=== PATIENT | male | born 1945 | race Caucasian/White ===

== ENCOUNTER 2017-09-15 10:16 | Emergency (ER) | payer OTHER ==
[~2017-09-15] VITALS: Ht 175.3 cm; Wt 71.2 kg
[~2017-09-15 10:16] MED LIST: AMOXICILLIN250 MG PO; CALTRATE 600 W1 EACH PO; IBUPROFEN400 MG PO; LISINOPRIL10 MG PO; PRINIVIL10 MG PO; PROAIR HFA INH8.5 GM
[2017-09-15] MEDS ORDERED: HYDROCODONE/APAP 7.5MG-325MG 1 EA TAB PO PRN (10:30)
--- NOTE | 2017-09-15 11:16 | Diagnostic Imaging Report ---
EXAM: KNEE LEFT THREE VIEWS DATE: 09/15/2017 10:27 AM INDICATION: Fall/pain COMPARISON: None FINDINGS: Advanced degenerative changes are present, predominantly in the lateral compartment with complete joint space loss. Small joint effusion present. No distinct fracture or dislocation identified. IMPRESSION: Advanced degenerative changes as above. Signed by: Dr. Dawit Chacon MD on 09/15/2017 11:13 AM
[2017-09-15 12:54] VITALS: BP 172/95
== END 2017-09-15 12:23 | disposition home or self-care (01) ==
LOC: ER 10:18
DX: M25.562 Pain in left knee (principal); R26.2 Difficulty in walking, not elsewhere classified; I10 Essential (primary) hypertension; Z85.46 Personal history of malignant neoplasm of prostate
CPT/HCPCS: 99283

== ENCOUNTER 2019-02-22 13:08 | Emergency (ER) | payer OTHER ==
[~2019-02-22] VITALS: Ht 175.3 cm; Wt 71.2 kg
--- OUTSIDE RECORDS SUMMARY | 2019-02-22 13:11 | XMS REPORT | Summary of Care ---
Author Author [facility] Outpatient Imaging [facility] Address Unknown Phone Unavailable Encounter HQ Encntr_aliwarner(FIN) [id number] Date(s): 11/27/18 - 11/27/18 [facility] Outpatient Imaging [facility] [address] [facility], [address] [place] [phone] Discharge Disposition: Home or Self Care Attending Physician: Dada Rivers MD Referring Physician: Dada Rivers MD Vital Signs No data available for this section Problem List No data available for this section Allergies, Adverse Reactions, Alerts No data available for this section Medications No data available for this section Results No data available for this section Immunizations No data available for this section Procedures No data available for this section Social History No data available for this section Assessment and Plan No data available for this section
--- OUTSIDE RECORDS SUMMARY | 2019-02-22 13:11 | XMS REPORT | Continuity of Care Document ---
Author Author [employer] Address Unknown Phone Unavailable Care Team Providers Care Dental Coordinator Name Role Phone Mantex Unavailable Unavailable Problems Problem Status Onset Date Classification Date Reported Comments Source Shortness of breath 08/15/2017 11/15/2017 [facility] R05 - COUGH Active 01/05/2016 [facility] Medications Medication Details Route Status Patient Instructions Ordering Provider Order Date Source Lisinopril 10 Mg Tablet, 10 Mg Oral Daily Active 02/09/2015 [facility] Albuterol Sulfate (Proair Hfa Inhaler*) 8.5 Gm Inh as needed for Shortness Of Breath Active [facility] Amoxicillin 250 Mg Capsule Three Times A Day Active [facility] Calcium Carbonate/Vitamin D3 (Caltrate 600 W-D Tablet) 1 Each Tablet Daily Active [facility] Ibuprofen 400 Mg Tablet Every 4 Hours Active [facility] Lisinopril (Prinivil) 10 Mg Tablet Twice A Day Active [facility] Allergies, Adverse Reactions, Alerts Substance Category Reaction Severity Reaction type Status Date Reported Comments Source Morphine DIFF URINATING Mild Allergy to Substance Active 06/01/2010 [facility] Celecoxib "JUMPY" Mild Allergy to Substance Active 06/01/2010 [facility] Immunizations No Data Provided for This Section Results No Data Provided for This Section Pathology Reports No Data Provided for This Section Diagnostic Reports Report Value Date Source Abdomen complete US EXAM: US ABDOMEN COMPLETE DATE: 11/27/2018 10:24 CDT INDICATION: - R74.8 Abnormal levels of other serum enzymes COMPARISON: None. TECHNIQUE: Multiplanar grayscale and color Doppler ultrasound images of the abdomen. FINDINGS: Liver: Craniocaudal length: 14.4 cm. Normal. Echogenicity: Mildly increased. Mass (size and location): None. Portal vein: Normal. Bile ducts: Common bile duct diameter: 5 mm. Intrahepatic ducts: Normal. Gallbladder: Absent. Pancreas: Head and uncinate process: Normal. Body and tail: Not seen. Spleen: Craniocaudal length: 9 cm. Normal. Mass or focal lesion (size and location): None. Right kidney: Hydronephrosis: None. Size: 9.9 x 4.6 cm. Normal. Echogenicity: Normal. Mass/Stone/Cyst (size and location): Upper pole partially exophytic simple cyst measuring 2 x 2.5 x 2.5 cm. Left kidney: Hydronephrosis: None. Size: 11.4 x 4.9 cm. Normal. Echogenicity: Normal. Mass/Stone/Cyst (size and location): 1.7 x 1.6 x 1.5 cm partially exophytic interpolar lesion echogenic lesion. 3.6 x 3.6 x 4.2 cm simple exophytic cyst at the lower pole. Abdominal aorta and IVC: Visualized portions are normal. Ascites: None. IMPRESSION: Mild fatty change liver. Status cholecystectomy. 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 Recommendations: Multiphasic renal protocol CT or MRI for further evaluation. 11/27/2018 [facility] Chest 2 views DX Exam: Chest x-ray, 2 views Reason for Exam: - R06.02 Shortness of breath Comparison Exam: X-ray 09/21/2015 Discussion: Cardiac silhouette is within normal limits for size. No pulmonary edema nor pleural effusions. No focal lung consolidations appreciated. No appreciable evidence seen for pneumothorax. 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 Impression: 1. No acute cardiopulmonary abnormalities. 08/08/2017 [facility] Chest 2 views DX EXAM: PA AND LATERAL CHEST X RAY DATE:- 01/05/2016 1:51 PM CDT . CLINICAL INDICATION: Acute bronchitis. TECHNIQUE: PA and lateral views of chest COMPARISON: Unavailable FINDINGS: The lungs are hyperinflated with slight flattening of the hemidiaphragms. There is mild diffuse interstitial prominence with peribronchial thickening. Heart size and mediastinal contours are normal. There is no acute bony abnormality. There is advanced bilateral shoulder degenerative change IMPRESSION: Hyperinflated lungs with bronchial thickening suggesting bronchitis of indeterminate chronicity. 01/05/2016 [facility] Consultation Notes No Data Provided for This Section Discharge Summaries No Data Provided for This Section History and Physicals No Data Provided for This Section Vital Signs No Data Provided for This Section Encounters Location Location Details Encounter Type Encounter Number Reason For Visit Attending Provider ADM Date DC Date Status Source [facility] Outpatient [facility] [place] [facility] [id number] Louie Nguyen 03/25/2014 03/26/2014 [facility] Outpatient [facility] [place] [facility] [id number] Louie Nguyen 01/05/2016 01/06/2016 [facility] Outpatient [facility] [place] [facility] [id number] Louie Nguyen 08/08/2017 08/09/2017 [facility] Departed Emergency Room [id number] JULIAN VELASQUEZ MD 09/15/2017 09/15/2017 [facility] Outpatient Imaging - [place] [facility] [id number] Dada Rivers 11/27/2018 11/28/2018 [facility] Procedures No Data Provided for This Section Assessment and Plan No Data Provided for This Section Plan of Care Plan of Care Date Source Discharge Date 09/15/17 12:23pm Disposition HOME, SELF-CARE Condition at Discharge Stable Instructions/Education Provided Joint Pain Forms Provided Work/School Excuse Prescriptions See Medication Section Referrals LOUIE NGUYEN MD Address: [address] [place] [address] SONALI ELAM MD Address: [address] [place] [address] Additional Instructions/Education 1. knee immobilizer / walker 2. return to ed as needed 3. follow up with orthopedic doctor in 1-2 [place] 09/15/2017 [facility] Social History Social History Date Source No data available for this section 11/28/2018 [facility] Social History Problem Response Recorded Date/Time Onset Date Status Hx Psychiatric Problems No 07/29/2013 2:30am Not Applicable Not Applicable Hx Eating Disorder No 07/29/2013 2:30am Not Applicable Not Applicable Hx Substance Use Disorder No 07/29/2013 2:30am Not Applicable Not Applicable Hx Depression No 07/29/2013 2:30am Not Applicable Not Applicable Hx Substance Use Treatment No 07/29/2013 2:30am Not Applicable Not Applicable Hx Physical Abuse No 07/29/2013 2:30am Not Applicable Not Applicable 09/15/2017 [facility] No data available for this section 08/09/2017 [facility] Family History No Data Provided for This Section Advance Directives Order Name Results Value Date Source Advance Directives Advance Directives Directive Response Recorded Date/Time Does the patient have an advance directive? No 09/15/17 12:23pm If yes, is advance directive on file with [facility]? No 04/02/08 2:22pm If not on file with [facility] will patient provide a copy? No 07/21/10 11:37am Do you have a Directive to Physician? No 09/15/17 12:23pm Do you have a Medical Power of Sprinkling Truck Driver? No 09/15/17 12:23pm Do you have an out of hospital Do Not Resuscitate Order? No 09/15/17 12:23pm Do you have any special needs we should be aware of? No 09/15/17 12:23pm Do you have a support person here with you today? No 09/15/17 12:23pm Did patient receive Notice of Privacy Practices? Yes 09/15/17 12:23pm Did patient receive patient rights and responsibilities? Yes 09/15/17 12:23pm 09/15/2017 [facility] Functional Status No Data Provided for This Section
--- OUTSIDE RECORDS SUMMARY | 2019-02-22 13:11 | XMS REPORT | Summary of Care ---
Author Organization Unknown Address Unknown Phone Unavailable Encounter HQ Antonellar_richa(KOLE) [id number] Date(s): 03/25/14 - 03/25/14 [facility] Outpatient Imaging - [address] [address] [place] Discharge Disposition: Home Physician Attending: Louie Nguyen MD Reason for Visit 842.09 - SPRAIN OF WRIST Problem List No data available for this section Allergies, Adverse Reactions, Alerts No data available for this section Medications No data available for this section Medications Administered During Your Visit No data available for this section Immunizations No data available for this section
--- OUTSIDE RECORDS SUMMARY | 2019-02-22 13:11 | XMS REPORT | Summary of Care ---
Author Author [facility] Outpatient Imaging - [place] Organization [facility] [place] Address Unknown Phone Unavailable Encounter HQ Encntr_alias(FIN) [id number] Date(s): 08/08/17 - 08/08/17 [facility] Outpatient [facility] [place] [address] [place], [place] [address] [phone] Encounter Diagnosis Shortness of breath (Final) - 08/14/17 Discharge Disposition: Home or Self Care Attending Physician: Louie Nguyen MD Vital Signs No data available for [...]
--- OUTSIDE RECORDS SUMMARY | 2019-02-22 13:11 | XMS REPORT ---
Author Author [facility] Address Unknown Phone Unavailable Care Team Providers Care School Fundraising Director Name Role Phone OMARIPATSY Anamaria JULIAN Unavailable Unavailable Problems This patient has no known problems. Allergies, Adverse Reactions, Alerts This patient has no known allergies or adverse reactions. Medications This patient has no known medications. Results Test Description Test Time Test Comments Text Results Atomic Results Result Comments KNEE LEFT THREE VIEWS [place] [address] Patient Name: DAVID CABRERA MR #: [id number] : 1945 Age/Sex: 72/M Req #: [id number] Adm Physician: Ordered by: JAQUELIN BARRETO RUG INSPECTOR HELPER Report #: [id number] Location: ER Room/Bed: Procedure: [id number] DX/KNEE LEFT THREE VIEWS Exam Date: 09/15/17 Exam Time: 1045 REPORT STATUS: Signed EXAM: KNEE LEFT THREE VIEWS DATE: 09/15/2017 10:27 AM INDICATION: Fall/pain COMPARISON: None FINDINGS: Advanced degenerative changes are present, predominantly in the lateral compartment with complete joint space loss. Small joint effusion present. No distinct fracture or dislocation identified. IMPRESSION: Advanced degenerative changes as above. Signed by: Dr. Les Mora MD on 09/15/2017 11:13 AM Dictated By: LES MORA MD [id number] Transcribed By: PINEDA on 09/15/171112 COPY TO: JAQUELIN BARRETO NP
--- OUTSIDE RECORDS SUMMARY | 2019-02-22 13:11 | XMS REPORT | Summary of Care ---
Author Author [facility] Outpatient Imaging - [place] Organization [facility] Outpatient Imaging - [place] Address Unknown Phone Unavailable Encounter HQ Encntr_alias(FIN) [id number] Date(s): 01/05/16 - 01/05/16 [facility] Outpatient Imaging - [place] [address] [place] [phone] Discharge Disposition: Home or Self Care Attending [...]
--- NOTE | 2019-02-22 15:07 | Diagnostic Imaging Report ---
Exam: Left knee 3 views History: Knee pain Comparison: 09/15/2017 Findings: Advanced degenerative arthrosis, predominantly within the lateral compartment with complete joint space loss. Worsened subchondral sclerosis and cystic change relative to 09/15/2017. Small suprapatellar joint effusion. No displaced fracture or dislocation. Intra-articular calcific fragments are unchanged. Impression: Advanced lateral compartment predominant tricompartmental degenerative arthrosis. Signed by: Dr. Celestine Valenzuela M.D. on 02/22/2019 3:04 PM
[2019-02-22] MEDS ORDERED: FLOMAX0.4 MG PO (15:29)
[2019-02-22] MEDS ORDERED: MUPIROCIN22 GM TOP (15:29)
[2019-02-22] MEDS ORDERED: HYDRALAZINE HCL25 MG PO (15:29)
[2019-02-22] MEDS ORDERED: GABAPENTIN300 MG PO (15:29)
[2019-02-22] MEDS ORDERED: MEDROXYPROGESTER5 GM PO (15:29)
[2019-02-22] MEDS ORDERED: FUROSEMIDE40 MG PO (15:29)
[2019-02-22] MEDS ORDERED: XARELTO10 MG PO (15:29)
[2019-02-22] MEDS ORDERED: CARVEDILOL3.125 MG PO (15:29)
[2019-02-22] MEDS ORDERED: ISOSORBIDE DINI20 MG PO (15:29)
[2019-02-22] MEDS ORDERED: RENAGEL800 MG PO (15:29)
== END 2019-02-22 15:28 | disposition home or self-care (01) ==
LOC: ER 13:08
DX: M17.12 Unilateral primary osteoarthritis, left knee (principal); I10 Essential (primary) hypertension; Z85.46 Personal history of malignant neoplasm of prostate
CPT/HCPCS: 99283

== ENCOUNTER 2019-03-30 05:56 | Observation (INO) | payer OTHER ==
[2019-03-27 10:21] LABS: BASOPHILS % 0.3 % (0.0-1.0); EOSINOPHILS # (AUTO) 0.3 (0.0-0.4); EOSINOPHILS % 4.7 % (0.0-6.0); HEMATOCRIT 40.7 % (38.2-49.6); HEMOGLOBIN 13.3 g/dL (14.0-18.0); LYMPHOCYTES # (AUTO) 1.7 (1.0-3.2); LYMPHOCYTES % 26.5 % (18.0-39.1); MEAN CORPUSCULAR HEMOGLOBIN 29.6 pg (28-32); MEAN CORPUSCULAR HGB CONC 32.7 g/dL (31-35); MEAN CORPUSCULAR VOLUME 90.4 fL (81-99); MONOCYTES # (AUTO) 0.6 (0.2-0.8); MONOCYTES % 8.9 % (4.4-11.3); NEUTROPHILS # (AUTO) 3.9 (2.1-6.9); PLATELET COUNT 249 x10e3/uL (140-360); RED CELL DISTRIBUTION WIDTH 12.7 % (11.7-14.4)
--- NOTE | 2019-03-27 10:51 | Diagnostic Imaging Report ---
EXAMINATION: CHEST 2 VIEWS INDICATION: Pre-operative COMPARISON: None FINDINGS: LINES/TUBES:None LUNGS:The lungs are well-inflated. No focal consolidation or pulmonary edema. PLEURA:No pleural effusion or pneumothorax. MEDIASTINUM:The cardiomediastinal silhouette appears normal in size and shape. BONES/SOFT TISSUES:No acute osseous injury. Severe degenerative changes of both glenohumeral joints. ABDOMEN:No free air under the diaphragm. Status post cholecystectomy IMPRESSION: No focal pneumonia or pulmonary edema. Severe degenerative changes of both glenohumeral joints. Signed by: Karina Lucero MD on 03/27/2019 10:48 AM
--- NOTE | 2019-03-29 07:05 | NUR ---
SPIRITUAL CARE - Pre-Surgery Assessment: Pt in bed. Pt's friend at bedside. Pt reported supportive attention from family and friends. Intervention: I provided pastoral presence, hospitality, sympathetic listening, and prayer. I acquainted pt with availability of low heel builder while hospitalized. Outcome: Pt expressed appreciation for visit. No need for follow up indicated at this time. LUIS Lorenzolain Spiritual Care Department O: [phone] Pager: [phone] ([phone] + number calling from)
[~2019-03-30] VITALS: Ht 180.3 cm; Wt 70.8 kg
[~2019-03-30 05:56] MED LIST changes: +ALEVE PM CAPLE1 EACH PO; +CARVEDILOL3.125 MG PO; +FLOMAX0.4 MG PO; +FUROSEMIDE40 MG PO; +GABAPENTIN300 MG PO; +HYDRALAZINE HCL25 MG PO; +ISOSORBIDE DINI20 MG PO; +LEVOTHYROXINE112 MCG PO; +MEDROXYPROGESTER5 GM PO; +MUPIROCIN22 GM TOP; +ONE DAILY MULT1 EAC1 PO; +RENAGEL800 MG PO; +STOOL SOFTENER50 MG PO; +XARELTO10 MG PO
[2019-03-30] MEDS ORDERED: TRANEXAMIC ACID 1,000 MG/10 ML ML ONE (06:31)
[2019-03-30] MEDS ORDERED: VANCOMYCIN HCL 1,000 MG ONE (06:31)
[2019-03-30] MEDS ORDERED: BACITRACIN 50,000 UNIT VIAL ONE (06:31)
[2019-03-30] MEDS ORDERED: SODIUM CHLORIDE 0.9% 500ML 500 ML ONE (06:32)
[2019-03-30] MEDS ORDERED: CEFAZOLIN SOD 1 GM/NS 50ML 100 ML IV ONE (06:43)
[2019-03-30] MEDS ORDERED: GABAPENTIN 300 MG CAP ONE (06:43)
[2019-03-30] MEDS ORDERED: DEXAMETHASONE SOD PHOS 10 MG/1 ML VIAL ONE (06:43)
[2019-03-30] MEDS ORDERED: ROPIVACAINE 246.25 MG, EPINEPHRINE HCL 1:1000 1ML 0.5 MG, CLONIDINE HCL 0.08 MG in SODI... INJ ONE (07:30)
--- NOTE | 2019-03-30 10:43 | Diagnostic Imaging Report ---
EXAMINATION: KNEE LEFT 1-2 VIEWS INDICATION: Postoperative COMPARISON: None FINDINGS: Portable AP and lateral images of the left knee demonstrate immediate postoperative findings of left total knee replacement. Alignment is anatomic. No unexpected fracture. Subcutaneous postoperative soft tissue emphysema. Surgical skin marc in place. Small joint effusion. IMPRESSION: Anatomic alignment status post left total knee replacement. Signed by: Karina Lucero MD on 03/30/2019 10:40 AM
[2019-03-30] MEDS ORDERED: DOCUSATE SODIUM 100 MG CAP PO PRN (10:45)
[2019-03-30] MEDS ORDERED: ONDANSETRON HCL INJ 2MG/ML 2ML 2 MG/ML VIAL IV PRN (10:45)
[2019-03-30] MEDS ORDERED: HYDROCODONE/APAP 7.5MG-325MG 1 EA TAB PO PRN (10:45)
[2019-03-30] MEDS ORDERED: KETOROLAC TROMETHAMINE 30 MG/ML VIAL IV PRN (10:45)
[2019-03-30] MEDS ORDERED: DIPHENHYDRAMINE HCL INJ 50 MG/ML VIAL IM/IV PRN (10:45)
[2019-03-30] MEDS ORDERED: ACETAMINOPHEN 650 MG SUPP PR PRN (10:45)
[2019-03-30] MEDS ORDERED: PROMETHAZINE HCL (IM) 25 MG/ML VIAL IM PRN (10:45)
[2019-03-30] MEDS ORDERED: HYDROCODONE/APAP 5MG-325MG TAB PO PRN (10:45)
[2019-03-30] MEDS: ACETAMINOPHEN 1000 MG/100 ML IV SCH ×3 (12:00→23:44)
[2019-03-30] MEDS ORDERED: ROPIVACAINE 0.5% 5 MG/ML 30 ML SDV ONE (13:51)
[2019-03-30 15:23] VITALS: BP 116/69
--- NOTE | 2019-03-30 15:23 | NUR ---
RECEIVED PT TO FLOOR [id number] PT DENIES ANY PAIN AT THIS TIME LEFT KNEE/LEG IS COVERED WITH FADI DRY AND INTACT WITH ICE PACK IN PLACE FOOT PUMPS PRESENT RIGHT LEG COMPRESSION ON IV TO THE RIGHT HAND 20 PATENT AND DRY WILL CONTINUE TO MONITOR PT CLOSELY, SIDE RAILSX3, BED WHEELS LOCKED, CALL LIGHT IS WITHIN EASY REACH, INSTRUCTED TO CALL FOR ASSISTANCE IF NEEDED
[2019-03-30] MEDS: CEFAZOLIN SOD 1 GM/NS 50ML 50 ML IV SCH (16:11)
[2019-03-30] MEDS: ASPIRIN 325 MG TAB PO SCH (16:11)
[2019-03-30] MEDS: SODIUM CHLORIDE 0.9% 1000ML 1,000 ML IV SCH ×2 (16:11→20:44)
[2019-03-30 16:43] VITALS: BP 116/69
[2019-03-30] MEDS ORDERED: PROPOFOL IV EMULSION 10 MG/ML 20 ML VIAL ONE (17:18)
[2019-03-30] MEDS ORDERED: PHENYLEPHRINE HCL 1% 10 MG/ML VIAL ONE (17:18)
[2019-03-30] MEDS ORDERED: ONDANSETRON HCL INJ 2MG/ML 2ML 2 MG/ML VIAL ONE (17:18)
[2019-03-30] MEDS ORDERED: SEVOFLURANE INHAL SOLN 250 ML PEN BTL ONE (17:18)
[2019-03-30] MEDS ORDERED: DEXAMETHASONE SOD PHOS INJ 4 MG/ML VIAL ONE (17:18)
[2019-03-30] MEDS ORDERED: LIDOCAINE HCL 2% LOCAL INJ 5 ML SDV VIAL INJ ONE (17:18)
[2019-03-30] MEDS ORDERED: FENTANYL CITRATE/PF 100MCG/2 ML INJ ONE (17:59)
[2019-03-30] MEDS ORDERED: MIDAZOLAM HCL 2 MG/2 ML VIAL ONE (17:59)
--- NOTE | 2019-03-30 19:10 | NUR ---
Received patient asleep on bed, not in distress, CPM on, attached to patient, no complaints of pain at this time, call light within easy reach, bed locked and in low position, bed alarm activated, will continue to monitor closely
[2019-03-30 20:04] VITALS: BP 127/68
[2019-03-30 21:00] VITALS: BP 127/68
[2019-03-30] MEDS ORDERED: ZOLPIDEM TARTRATE 5 MG TAB PO PRN (21:00)
--- NOTE | 2019-03-30 22:30 | NUR ---
patient voided freely in a urinal
[2019-03-31] MEDS: CEFAZOLIN SOD 1 GM/NS 50ML 50 ML IV SCH ×2 (00:14→08:37)
[2019-03-31 00:37] VITALS: BP 138/69
--- NOTE | 2019-03-31 03:54 | Operative Report ---
DATE OF PROCEDURE: 03/30/2019 SURGEON: Celestine Ventura MD YARN COMBER: Lawson Andrade, certified PA. PREOPERATIVE DIAGNOSIS: Osteoarthritis, left knee. POSTOPERATIVE DIAGNOSIS: Osteoarthritis, left knee. PROCEDURE: Left total knee arthroplasty. INDICATIONS: The patient is a 73-year-old gentleman, who is severely limited in his mobility due to a failed right total knee replacement and severe arthritic changes in his left knee. The findings and options have been discussed. We plan on a left total knee replacement. He will likely need a right knee revision at a later date. The risks and benefits have been explained. The recovery has been discussed. All of his questions have been answered. He states he understands and wishes to proceed. PROCEDURE IN DETAIL: The patient was brought to the operating room and placed under general anesthetic. His left lower extremity was prepped and draped in a sterile manner. He received prophylactic antibiotics, a regional block and tranexamic acid in the holding area. A preoperative time-out was performed. The extremity was exsanguinated and a proximal tourniquet was inflated to 300 mmHg. An anterior incision with a medial parapatellar arthrotomy was performed. Soft tissue releases were performed to bring the knee up into flexion with the patella everted. Meniscal remnants, marginal osteophytes and the cruciate ligaments were sacrificed. A Rubio and Nephew posterior stabilized Legion Knee System was used. An extramedullary cutting guide was used to resect the proximal tibia. The tibial base plate was a size #5. The central fin punch was impacted and attention was directed towards the distal femur. An intramedullary cutting guide was used to resect the distal femur in 6 degrees of valgus and rotation, referencing off a combination of landmarks including Whitesides line, the epicondylar axis and the posterior condyles. The anterior, posterior and notch cuts were made. The femoral component was a size #6. Trial reductions were performed. A 9 mm posterior stabilized tibial insert provided appropriate soft tissue balancing in both full extension and 90 degrees of flexion. The patella was resurfaced with a 35 mm x 7.5 mm patellar button. The thickness was checked before and after and was right around 24 mm. Patellar tracking was noted to be concentric. The trial implants were removed. A 100 mL premixed pericapsular JERRY injection was placed into the surrounding soft tissue. The knee was thoroughly irrigated with a shower tip pulsatile lavage. All bone cuts had been irrigated with a spray mixture of diluted polymyxin and vancomycin spray. The components were cemented into place using a single mix of high viscosity cement preloaded with antibiotics. Care was taken to remove extravasated cement. The wound was further irrigated while the cement cured. The wound was then closed after sprinkling 500 mg of vancomycin powder into the joint. The arthrotomy was closed with #1 Ethibond in an interrupted fashion. The knee was put through flexion and extension to ensure a secure closure. The skin was closed with subcuticular Vicryl and marc. A sterile bandage was applied. The patient was extubated and transported to the recovery room in stable condition. Blood loss was minimal. All needle and sponge counts were correct. Celestine Ventura MD DR/RADHA /[id number]
[2019-03-31 04:43] VITALS: BP 166/77
[2019-03-31] MEDS: ACETAMINOPHEN 1000 MG/100 ML IV SCH (06:00)
[2019-03-31 06:31] LABS: HEMATOCRIT 34.5 % (38.2-49.6); HEMOGLOBIN 11.6 g/dL (14.0-18.0)
[2019-03-31] MEDS: SODIUM CHLORIDE 0.9% 1000ML 1,000 ML IV SCH (06:44)
--- NOTE | 2019-03-31 07:10 | NUR ---
pt asleep resp even and unlabored at this time, pt easily aroused, pt able to make needs known, call light in reach.
--- NOTE | 2019-03-31 07:14 | NUR ---
walking rounds done, patient is in good condition
--- NOTE | 2019-03-31 07:15 | NUR ---
pt asleep resp even and unlabored at this time no distress noted, pt aroused to touch and name , no c/o pain when asked, call light in reach, pt family member at bedside.
[2019-03-31] MEDS: ASPIRIN 325 MG TAB PO SCH (08:37)
[2019-03-31 08:40] VITALS: BP 166/77
[2019-03-31 08:50] VITALS: BP 155/76
[2019-03-31] MEDS ORDERED: LISINOPRIL 10 MG TAB PO SCH (09:00)
--- NOTE | 2019-03-31 09:16 | NUR ---
DR COLLIER OFFICE PREARRANGED FOLLOWING DISCHARGE PLAN OF: HOME TO [address] [id number] WITH NEIGHBOR JUDY [phone] EMERGENCY CONTACT WITH [facility] CONFIRMED WITH JUSTIN [phone] DME 3 IN ONE COMMODE. AND BED SIDE COMMODE PROVIDED BY [employer] [phone] PT ALREADY HAS ROLLING WALKER.
[2019-03-31] MEDS ORDERED: ACETAMINOPHEN 1000 MG/100 ML IV PRN (10:45)
--- NOTE | 2019-03-31 11:00 | NUR ---
pt Amb with PT tolerated well. no c/o pain when asked, call light in reach
[2019-03-31 11:54] VITALS: BP 126/72
[2019-03-31] MEDS ORDERED: ASPIR 8181 MG PO (12:33)
--- NOTE | 2019-03-31 14:10 | NUR ---
Visit made by the Spiritual Care Department Pastoral Visitor, Mira Jernigan. PV provided pastoral presence, prayer, hospitality, and supportive listening. Pastoral Visitor informed pt/family of the scope of Internal Control Analyst Services and availability. LUIS CUELLAR Clinical Care Coordinator Spiritual Care Department O: [phone] Pager: [phone] ([phone] + number calling from)
--- NOTE | 2019-03-31 14:52 | Consultation ---
DATE OF CONSULTATION: 03/30/2019 Brief Consultation PRIMARY CARE PHYSICIAN: Louie Nguyen MD REASON FOR CONSULTATION: Medical management. HISTORY: A 73-year-old male, status post left total knee arthroplasty. The patient is otherwise stable. Blood pressure is slightly elevated. He is on IV fluids. The patient is otherwise stable. PAST MEDICAL HISTORY: Osteoarthritis, hypertension, and hypothyroidism. PAST SURGICAL HISTORY: Knee replacement, hiatal hernia repair, appendectomy, and prostatectomy. SOCIAL HISTORY: The patient does not smoke or use alcohol. No regular drugs. ALLERGIES: TO MORPHINE AND CELEBREX. HOME MEDICATIONS: List reviewed. REVIEW OF SYSTEMS: As mentioned above. PHYSICAL EXAMINATION: VITAL SIGNS: Temperature is 98, blood pressure 136/77, pulse rate 70, respirations 18. GENERAL: The patient is not in acute distress. He is awake. HEENT: Normocephalic, atraumatic. Anicteric. NECK: Supple grossly. PULMONARY: Clear. CARDIOVASCULAR: Regular rhythm. ABDOMEN: Soft. EXTREMITIES: Status post left knee replacement. No edema. NEUROLOGIC: No focal deficit. LABORATORY DATA: Hemoglobin and hematocrit are 11.6 and 34.5. IMPRESSION: 1. Hypertension is slightly elevated due to IV fluid. We will discontinue IV fluids. 2. Hypothyroidism. 3. Postoperative care, left total knee arthroplasty. PLAN: Continue with home medication. Discontinue IV fluids. Pain control. The patient is otherwise stable. MD CHARLY Hennessy/CALISTAL /[id number]
--- NOTE | 2019-03-31 15:07 | NUR ---
pt discharged home, resp even and unlabored no s/s of distress noted ,pt was given information on his diagnoses, pt and family members were educated on medications, pt iv was removed no swelling no redness to site.
[2019-04-01] MEDS ORDERED: LEVOTHYROXINE SODIUM 100 MCG TAB PO SCH (06:00)
[2019-04-01] MEDS ORDERED: LEVOTHYROXINE SODIUM 125 MCG TAB PO SCH (06:00)
== END 2019-03-31 14:58 | disposition home health service (06) ==
LOC: OR 05:56 → PACU V 10:46 → MED/SURG 15:12
PROVIDERS: ADMIT Specialist; ATTEND Specialist
DX: M17.12 Unilateral primary osteoarthritis, left knee (principal); T84.090A Other mechanical complication of internal right hip prosthesis, initial encounter; M16.12 Unilateral primary osteoarthritis, left hip; Z88.5 Allergy status to narcotic agent; Z88.8 Allergy status to other drugs, medicaments and biological substances; I10 Essential (primary) hypertension; D29.1 Benign neoplasm of prostate; E03.9 Hypothyroidism, unspecified
CPT/HCPCS: 27447; 36415 ×2; 71046; 73560; 85014; 85018; 85025; 86850; 86900; 86920; 97110; 97116 ×2; 97161; 97530; C1713 ×2; G0378 ×2; J0131 ×2; J0171; J0690 ×2; J1100 ×2; J1885; J2001; J2250; J2370; J2405; J2704; J2795; J3010; J3370; J7030; J7040

== ENCOUNTER 2020-03-01 08:56 | Inpatient (IN) | payer MEDICARE, OTHER ==
[2020-02-26 12:26] LABS: BASOPHILS % 0.3 % (0.0-1.0); EOSINOPHILS # (AUTO) 0.4 (0.0-0.4); EOSINOPHILS % 6.4 % (0.0-6.0); HEMATOCRIT 41.1 % (38.2-49.6); HEMOGLOBIN 13.5 g/dL (14.0-18.0); MEAN CORPUSCULAR HEMOGLOBIN 29.2 pg (28-32); MEAN CORPUSCULAR HGB CONC 32.8 g/dL (31-35); MEAN CORPUSCULAR VOLUME 88.8 fL (81-99); MONOCYTES # (AUTO) 0.6 (0.2-0.8); MONOCYTES % 8.9 % (4.4-11.3); NEUTROPHILS # (AUTO) 4.7 (2.1-6.9); PLATELET COUNT 275 x10e3/uL (140-360); RED BLOOD COUNT 4.63 x10e6/uL (4.3-5.7); RED CELL DISTRIBUTION WIDTH 13.2 % (11.7-14.4)
--- NOTE | 2020-02-26 13:02 | Diagnostic Imaging Report ---
EXAMINATION: CHEST 2 VIEWS INDICATION: Preop for knee surgery ^PRE OP COMPARISON: 03/27/2019 FINDINGS: TUBES and LINES: None. LUNGS: Lungs are well inflated. Lungs are clear. There is no evidence of pneumonia or pulmonary edema. PLEURA: No pleural effusion or pneumothorax. HEART AND MEDIASTINUM: The cardiomediastinal silhouette is unremarkable. BONES AND SOFT TISSUES: No acute osseous lesion. Soft tissues are unremarkable. Scattered degenerative change. UPPER ABDOMEN: No free air under the diaphragm. IMPRESSION: No acute thoracic abnormality. Signed by: Dr. Kamaljit Soto M.D. on 02/26/2020 12:58 PM
[~2020-03-01] VITALS: Ht 180.3 cm; Wt 73.9 kg
[~2020-03-01 08:56] MED LIST changes: +ASPIR 8181 MG PO; +LEVOTHYROXINE50 MCG PO; +ROPIVACAINE 246.25 MG, EPINEPHRINE HCL 1:1000 1ML 0.5 MG, CLONIDINE HCL 0.08 MG, KETORO... INJ ONE
[2020-03-01] MEDS ORDERED: SODIUM CHLORIDE 0.9% 500ML 500 ML ONE (09:12)
[2020-03-01] MEDS ORDERED: VANCOMYCIN HCL 1,000 MG ONE (09:12)
[2020-03-01] MEDS ORDERED: TRANEXAMIC ACID 1,000 MG/10 ML ML ONE (09:13)
[2020-03-01] MEDS ORDERED: CELECOXIB 200 MG CAP ONE (09:35)
[2020-03-01] MEDS ORDERED: DEXAMETHASONE SOD PHOS INJ 4 MG/ML VIAL ONE ×2 (09:35→12:06)
[2020-03-01] MEDS ORDERED: GABAPENTIN 300 MG CAP ONE (09:36)
[2020-03-01] MEDS ORDERED: CEFAZOLIN SOD 1 GM/NS 50ML 100 ML IV ONE (09:36)
[2020-03-01] MEDS ORDERED: LIDOCAINE HCL 2% LOCAL INJ 5 ML SDV VIAL INJ ONE (12:06)
[2020-03-01] MEDS ORDERED: SEVOFLURANE INHAL SOLN 250 ML PEN BTL ONE (12:06)
[2020-03-01] MEDS ORDERED: EPHEDRINE SULFATE INJ 50 MG/ML VIAL ONE (12:06)
[2020-03-01] MEDS ORDERED: PROPOFOL IV EMULSION 10 MG/ML 20 ML VIAL ONE (12:06)
[2020-03-01] MEDS ORDERED: ONDANSETRON HCL INJ 2MG/ML 2ML 2 MG/ML VIAL ONE (12:06)
[2020-03-01] MEDS ORDERED: ROPIVACAINE 0.5% 5 MG/ML 30 ML SDV ONE (12:32)
[2020-03-01] MEDS ORDERED: LIDOCAINE 2%/ EPINEPHRINE 20ML MDV ONE (12:32)
[2020-03-01] MEDS ORDERED: HYDROCODONE/APAP 5MG-325MG TAB PO PRN (13:00)
[2020-03-01] MEDS ORDERED: DIPHENHYDRAMINE HCL INJ 50 MG/ML VIAL IV PRN (13:00)
[2020-03-01] MEDS ORDERED: ONDANSETRON HCL INJ 2MG/ML 2ML 2 MG/ML VIAL IV PRN (13:00)
[2020-03-01] MEDS ORDERED: HYDROCODONE/APAP 7.5MG-325MG 1 EA TAB PO PRN (13:00)
[2020-03-01] MEDS ORDERED: ACETAMINOPHEN 650 MG SUPP PR PRN (13:00)
[2020-03-01] MEDS ORDERED: KETOROLAC TROMETHAMINE 30 MG/ML VIAL IV PRN (13:00)
[2020-03-01] MEDS ORDERED: DOCUSATE SODIUM 100 MG CAP PO PRN (13:00)
--- OUTSIDE RECORDS SUMMARY | 2020-03-01 13:14 | XMS REPORT | Continuity of Care Document ---
Author Author Petar Hathaway CRMnext Leonie DAVID Junior Organization [facility] Address Unknown Phone Unavailable Care Team Providers Care Nuclear Worker Technician Name Role Phone FrenchWeb Information ExpoPromoter Unavailable Un available Problems Problem Status Onset Date Classification Date Reported Comments Source Shortness of breath 08/15/2017 11/15/2017 [facility] [place] R05 - COUGH Active 01/05/2016 [facility] [place] Medications No Data Provided for This Section Allergies, Adverse Reactions, Alerts No Known Medication Allergies Immunizations No Data Provided for This Section Results No Data Provided for This Section Pathology Reports No Data Provided for This Section Diagnostic Reports Report Value Date Source Abdomen complete US EXAM: US A BDOMEN COMPLETE DATE: 11/27/2018 10:24 CDT INDICATION: - [...] x 1.6 x 1.5 cm 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 Recommendations: Multiphasic renal protocol CT or MRI for further evaluation. 11/27/2018 [facility] Chest 2 views DX Exam: Chest x -ray, 2 views Reason for Exam: - R06.02 Shortness of breath Comparison Exam: X-ray 09/21/2015 Discussion: Cardiac silhouette is within normal limits for size. No pulmonary edema nor pleural effusions. No focal lung consolidations appreciated. No appreciable evidence seen for pneumothorax. 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 Impression: 1. No acute cardiopulmonary abnormaliti es. 08/08/2017 [facility] [place] Chest 2 views DX EXAM: PA AND LATERAL CHEST X RAY DATE:01/05/2016 1:51 PM CDT . CLINICAL INDICATION: Acute [...] suggesting bronchitis of indeterminate chronicity. 01/05/2016 [facility] [place] Consultation Notes No Data Provided for This Section Discharge Summaries No Data Provided for This Section History and Physicals No Data Provided for This Section Vital Signs No Data Provided for This Section Encounters Location Location Details Encounter Type Encounter Number Reason For Visit Attending Provider ADM Date DC Date Status Source [facility] [place] [facility] [id number] Louie Nguyen 03/25/2014 03/26/2014 [facility] [place] [facility] [place] [facility] [id number] Louie Nguyen 01/05/2016 01/06/2016 [facility] [place] [facility] [place] [facility] [id number] Louie Nguyen 08/08/2017 08/09/2017 [facility] [place] [facility] [place] [facility] [id number] Dada Donaldwarner 11/27/2018 11/28/2018 [facility] [place] Procedures No Data Provided for This Section Assessment and Plan No Data Provided for This Section Plan of Care No Data Provided for This Section Social History Social History Date Source No data available for this section 11/28/2018 VICTOR[facility] Harris No data available for this section 08/09/2017 [facility] [place] Family History No Data Provided for This Section Advance Directives No Data Provided for This Section Functional Status No Data Provided for This Section
--- OUTSIDE RECORDS SUMMARY | 2020-03-01 13:14 | XMS REPORT | Continuity of Care Document ---
Author Author [facility] Organization [facility] Address [facility] [address] [place] [address] Phone Unavailable Care Team Providers Care Departmental Secretary Name Role Phone Aditya NGUYEN MD PCP JOAQUIN HERNANDEZ Attphys Unavailable Rahel EDWARDS Attphys Unavailable Kristina Rivers Attphys Anamaria VELASQUEZ Attphys Unavailable Sheldon Nguyen Attphys Payers Payer Name Policy Type Policy Number Effective Date Expiration Date Kristina Larry [id number] 2017 00:00:00 [facility] Problems Condition Name Condition Details Condition Category Status Onset Date Resolution Date Last Treatment Date Treating Clinician Comments Source R05 - COUGH R05 - COUGH Active 01/05/2016 [facility] [place] Diagnosis Active 2016-01-05 00:01:00 2016-01-05 13:55:00 [facility] Shortness of breath Shor tness of breath 08/15/2017 11/15/2017 MH [facility] [place] Problem 2017-08-15 04:38:38 11-15 13:36:52 2017-11-15 13:36:52 [facility] Allergies, Adverse Reactions, Alerts Allergy Name Allergy Type Status Severity Reaction(s) Onset Date Inacti ve Date Treating Clinician Comments Source Morphine Allergy to Substance Active Mild DIFF URINATING 2010-06-01 00:00:00 [facility] Celecoxib Allergy to Substance Active Mild "JUMPY" 2010-06-01 00:00:00 [facility] Social History Social Habit Start Date Stop Date Quantity Comments Source Social History 2017-08-09 05:59:00 2017-08-09 05:59:00 [facility] Medications Ordered Medication Name Filled Medication Name Start Date Stop Da te Current Medication? Ordering Clinician Indication Dosage Frequency Signature (SIG) Comments Components Source Aspirin (Aspir 81) 81 Mg Tablet. Aspirin (Aspir 81) 81 Mg Tablet.dr Rocha 81 Twice A Day [facility] Docusate Sodium (Stool Softener) 50 Mg Capsule Docusat e Sodium (Stool Softener) 50 Mg Capsule Yes As Needed as needed for Constipation [facility] Levothyroxine Sodium 112 Mcg Tablet Levothyroxine Sodium 112 Mcg Tabl et Yes 225 Daily [facility] Lisinopril (Prinivil) 10 Mg Tablet Lisinopril (Prinivil) 10 Mg Tablet Yes 10 Daily [facility] Multivitamin (One Daily Multivitamin) 1 Each Tablet Mu ltivitamin (One Daily Multivitamin) 1 Each Tablet Yes 1 Daily [facility] Naproxen Sod/Diphenhydramine (Aleve Pm Caplet) 1 Each Tablet Naproxen Sod/Diphenhydramine (Aleve Pm Caplet) 1 Each Tablet Yes 1 As Needed [facility] Calcium Carbonate/Vitamin D3 (Caltrate 6 00 W-D Tablet) 1 Each Tablet, 600 Mg Oral Calcium Carbonate/Vitamin D3 (Caltrate 6 00 W-D Tablet) 1 Each Tablet, 600 Mg Oral 2019-03-27 00:00:00 No 600 Daily [facility] Carvedilol 3.125 Mg Tablet, 3.125 Mg Oral Carvedilol 3 .125 Mg Tablet, 3.125 Mg Oral 2019-03-27 00:00:00 No 3.125 Daily [facility] Furosemide 40 Mg Tablet, 40 Mg Oral Furosemide 40 Mg Tablet, 40 Mg Oral 2019-03-27 00:00:00 No 40 Three Times A Day [facility] Gabapentin 300 Mg Capsule, 300 Mg Oral Gabapentin 300 Mg Capsule , 300 Mg Oral 2019-03-27 00:00:00 No 300 Twice A Day [facility] Hydralazine Hcl 25 Mg Tab, 50 Mg Oral Hydralazine Hcl 25 Mg Tab, 50 Mg Oral 2019-03-27 00:00:00 No 50 Three Times A Day [facility] Ibuprofen 400 Mg Tablet, 400 Mg Oral Ibuprofen 400 Mg Tablet, 40 0 Mg Oral 2019-03-27 00:00:00 No 400 Every 4 Hours [facility] Isosorbide Dinitrate 20 Mg Tablet, 30 Mg Oral Isosorbi de Dinitrate 20 Mg Tablet, 30 Mg Oral 2019-03-27 00:00:00 No 30 Bedtime [facility] Medroxyprogesterone Acetate 5 Gm Powder, 5 Mg Oral Med roxyprogesterone Acetate 5 Gm Powder, 5 Mg Oral 2019-03-27 00:00:00 No 5 Kim ly [facility] Mupirocin 22 Gm Oint...g., 22 Gm Topically Mupirocin 2 2 Gm Oint...g., 22 Gm Topically 2019-03-27 00:00:00 No 22 [facility] Rivaroxaban (Xarelto) 10 Mg Tablet, 2.5 Mg Oral Rivaro xaban (Xarelto) 10 Mg Tablet, 2.5 Mg Oral 2019-03-27 00:00:00 No 2.5 Bertram y [facility] Sevelamer Hcl (Renagel) 800 Mg Tablet, 1600 Mg Oral Se velamer Hcl (Renagel) 800 Mg Tablet, 1600 Mg Oral 2019-03-27 00:00:00 No 1600 Three Times A Day [facility] Tamsulosin Hcl (Flomax*) 0.4 Mg Cap, 0.4 Mg Oral Tamsu losin Hcl (Flomax*) 0.4 Mg Cap, 0.4 Mg Oral 2019-03-27 00:00:00 No .4 Daily [facility] Albuterol Sulfate (Proair Hfa Inhaler*) 8.5 Gm Inh, Al buterol Sulfate (Proair Hfa Inhaler*) 8.5 Gm Inh, 2019-02-22 00:00:00 No as needed for Shortness Of Breath [facility] Amoxicillin 250 Mg Capsule, 250 Mg Oral Amoxicillin 250 Mg C apsule, 250 Mg Oral 2019-02-22 00:00:00 No 250 Three Times A Day [facility] Lisinopril 10 Mg Tablet, 10 Mg Oral Lisinopril 10 Mg Tablet, 10 Mg Oral 2015-02-09 00:00:00 No 10 Daily [facility] Procedures Procedure Date / Time Performed Performing Clinician [facility] e Total replacement of left knee joint 2019-03-30 00:00:00 JOAQUIN HERNANDEZ [facility] X-ray of chest, two views 2019-03-27 00:00:00 JOAQUIN HERNANDEZ I [facility] Encounters Start Date/Time End Date/Time Encounter Type Admission Type [facility] Care Department Encounter ID Source 2019-03-30 10:46:00 2019-03-31 14:58:00 Discharged Inpatient (obs) [address] [facility] [id number] [facility] 2019-02-22 13:08:00 2019-02-22 15:28:00 Departed Emergency Room [address] [facility] [id number] [facility] 2018-11-27 10:26:00 2018-11-27 23:59:00 Outpatient Dada Rivers MHOIB MHOIB [id number] 2017-09-15 10:18:00 2017-09-15 12:23:00 Departed Emergency Room ER JULIAN VELASQUEZ [facility] [id number] [facility] 2017-08-08 10:03:00 2017-08-08 23:59:00 Outpatient Louie Nguyen MHHOIP M[facility]OIP [id number] 2016-01-05 13:46:00 2016-01-05 23:59:00 Outpatient Louie Nguyen MHHOIP MHHOIP [id number] 2014-03-25 12:38:00 2014-03-25 23:59:00 Outpatient Lissy Nguyen [facility]IE [id number] Results Test Description Test Time Test Comments Results Result Comments Source CHEST 2 VIEWS 2020-02-26 12:57:00 [facility] [address] [place] [address] Patient Name: DAVID CABRERA MR #: [id number] : 1945 Age/Sex: 74/M Req #: [id number] [facility] Physician: Ordered by: JOAQUIN HERNANDEZ MD Report #: [id number] Location: OR Room/Bed: Procedure: [id number] DX/CHEST 2 VIEWS Exam Date: Exam Time: REPORT STATUS: Signed EXAMINATION: CHEST 2 VIEWS INDICATION: Preop for knee surgery PRE OP COMPARISON: 03/27/2019 FINDINGS: TUBES and LINES: None. LUNGS: Lungs are well inflated. Lungs are clear. There is no evidence of pneumonia or pulmonary edema. PLE URA: No pleural effusion or pneumothorax. HEART AND MEDIASTINUM: The cardiomediastinal silhouette is unremarkable. BONES AND SOFT TISSUES: No acute osseous lesion. Soft tissues are unremarkable. Scattered degenerative change. UPPER ABDOMEN: No free air under the diaphragm. IMPRESSION: No acute thoracic abnormality. Signed by: Dr. Noris Soto M.D. on 02/26/2020 12:58 PM Dictated By: NORIS SOTO MD, MD 125 Transcribed By: PINEDA on 02/26/20 1258 COPY TO: JOAQUIN HERNANDEZ MD Hemoglobin 2019-03-31 06:34:00 Test Item Hemoglobin (test code = 98829-0) 11.6 14.0-18.0 L [facility]2019-10-29 06:34:00* Test Item Value Reference Range Interpretation Comments Hematocrit (test code = 4544-3) 34.5 38.2-49.6 L [facility] 1-2 [id number] 10:38:00 [facility] [address] [place], [place] [address] Patient Name: DAVID CABRERA MR #: [id number] : 1945 Age/Sex: 73/M Req #: [id number] Adm Physician: Ordered by: JOAQUIN HERNANDEZ MD Report #: [id number] Location: OR Room/Bed: Procedure: [id number] DX/ KNEE LEFT 1-2 VIEWS Exam Date: 03/30/19 Exam Time: 1 000 REPORT STATUS: Signed EXAMIN ATION: KNEE LEFT 1-2 VIEWS INDICATION: Postoperative COMPARISON: None FINDINGS: Portable AP and lateral images of the left knee de monstrate immediate postoperative findings of left total knee replacement. Ali gnment is anatomic. No unexpected fracture. Subcutaneous postoperative soft ti ssue emphysema. Surgical skin marc in place. Small joint effusion. IMP RESSION: Anatomic alignment status post left total knee replacement. Sig katia by: Dominic Lam MD on 03/30/2019 10:40 AM Dictated By: DOMINIC LAM MD 1040 Transcribed By: ERASMO GRAHAM on 03/30/19 1040 COPY TO: JOAQUIN HERNANDEZ MD CHEST 2 VIEWS 2019-03-27 10:47:[address] [address] Patient Name: DAVID CABRERA MR #: [id number] : 1945 Age/Sex: 73/M Req #: [id number] Adm Physician: Ordered by: JOAQUIN HERNANDEZ MD Report #: [id number] Location: OR Room/Bed: Procedure: [id number] DX/ CHEST 2 VIEWS Exam Date: Exam Time: REPORT STATUS: Signed EXAMINATION: CHEST 2 EWS INDICATION: Pre-operative COMPARISON: None FINDINGS: LINES/TUBES:None LUNGS:The lungs are well-inflated. No focal consolid ation or pulmonary edema. PLEURA:No pleural effusion or pneumothorax. MEDIASTINUM:The cardiomediastinal silhouette appears normal in size and shape. BONES/SOFT TISSUES:No acute osseous injury. Severe degenerative changes of b oth glenohumeral joints. ABDOMEN:No free air under the diaphragm. Status post cholecystectomy IMPRESSION: No focal pneumonia or pulmonary gabbie a. Severe degenerative changes of both glenohumeral joints. Signed by: Dominic Lam MD on 03/27/2019 10:48 AM Dictated By: DOMINIC LAM MD Electr onically Signed By: DOMINIC LAM MD on 03/27/19 104 Transcribed By: PINEDA on 1047 COPY TO: JOAQUIN HERNANDEZ MD White Blood Count 2019-03-27 10:29:00* Test Item Value Reference Range Interpretation Comments White Blood Count (test code = 6690-2) 6.54 4.8-10.8 [facility] [id number] 10:29:00* Test Item Value Reference Range Interpretation Comments Red Blood Count (test code = 789-8) 4.50 4.3-5.7 [facility] Corpuscular Vceoju1081-52-23 10:29:00* Test Item Value Reference Range Interpretation Comments Mean Corpuscular Volume (test code = 787-2) 90.4 81-99 [facility] Corpuscular Wwsafoywby2562-41-98 10:29:00* Test Item Value Reference Range Interpretation Comments Mean Corpuscular Hemoglobin (test code = 785-6) 29.6 28-32 [facility] Corpuscular Hemoglobin Concent 2019-03-27 10:29:00* Test Item Value Reference Range Interpretation Comments Mean Corpuscular Hemoglobin Concent (test code = 786-4) 32.7 31-35 [facility]wall[facility] Cell Distribution [id number] 10:29:00* Test Item Value Reference Range Interpretation Comments Red Cell Distribution Width (test code = 53243-1) 12.7 11.7 -14.4 [facility]wallPlatelet Onkoh9985-05-78 10:29:00* Test Item Value Reference Range Interpretation Comments Platelet Count (test code = 777-3) 249 140-360 [facility]wall[facility]utrophils (%) (Auto)2019-03-27 10:29:00 * Test Item Value Reference Range Interpretation Comments Neutrophils (%) (Auto) (test code = 55936-6) 59.0 38.7-80.0 [facility]wallLymphocytes (%) (Auto)2019-03-27 10:29:00 * Test Item Value Reference Range Interpretation Comments Lymphocytes (%) (Auto) (test code = 736-9) 26.5 18.0-39.1 [facility]wall[facility]ocytes (%) (Auto)2019-03-27 10:29:00* Test Item Value Reference Range Interpretation Comments Monocytes (%) (Auto) (test code = 5905-5) 8.9 4.4-11.3 [facility]osinophils (%) (Auto)2019-03-27 10:29:00 * Test Item Value Reference Range Interpretation Comments Eosinophils (%) (Auto) (test code = 713-8) 4.7 0.0-6.0 [facility]ophils (%) (Auto)2019-03-27 10:29:00* Test Item Value Reference Range Interpretation Comments Basophils (%) (Auto) (test code = 706-2) 0.3 0.0-1.0 [facility]wallIM GRANULOCYTES %2019-03-27 10:29:00* Test Item Value Reference Range Interpretation Comments IM GRANULOCYTES % (test code = IM GRANULOCYTES %) 0.6 0.0- 1.0 [facility]Neutrophils # (Auto)2019-03-27 10:29:00* Test Item Value Reference Range Interpretation Comments Neutrophils # (Auto) (test code = 751-8) 3.9 2.1-6.9 [facility]wallLymphocytes # (Auto)2019-03-27 10:29:00* Test Item Value Reference Range Interpretation Comments Lymphocytes # (Auto) (test code = 59715-4) 1.7 1.0-3.2 [facility]wall[facility]ocytes # (Auto)2019-03-27 10:29:00* Test Item Value Reference Range Interpretation Comments Monocytes # (Auto) (test code = 742-7) 0.6 0.2-0.8 [facility]osinophils # (Auto)2019-03-27 10:29:00* Test Item Value Reference Range Interpretation Comments Eosinophils # (Auto) (test code = 711-2) 0.3 0.0-0.4 [facility]ophils # (Auto)2019-03-27 10:29:00* Test Item Value Reference Range Interpretation Comments Basophils # (Auto) (test code = 704-7) 0.0 0.0-0.1 [facility]wallAbsolute Immature Granulocyte (auto 2019-03-27 10:29:00* Test Item Value Reference Range Interpretation Comments Absolute Immature Granulocyte (auto (krista t code = Absolute Immature Granulocyte (auto) 0.04 0-0.1 [facility]wallKNEE LEFT THREE [id number] 15:01:00 [place] [address] Patient Name: DAVID CABRERA MR #: [id number] : [birth year] Age/Sex: 73/M Req #: [id number] Adm Physician: Ordered by: KIERSTEN DONALD NP Report #: [id number] Location: ER Room/Bed: Procedure: [id number] DX/ KNEE LEFT THREE VIEWS Exam Date: 02/22/19 Exam Time: 1437 REPORT STATUS: Signed E xam: Left knee 3 views History: Knee pain Comparison: 09/15/2017 Findings: Advanced degenerative arthrosis, predominantly within the lateral c ompartment with complete joint space loss. Worsened subchondral sclerosis and cystic change relative to 09/15/2017. Small suprapatellar joint effusion. No di splaced fracture or dislocation. Intra-articular calcific fragments are unc hanged. 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 Signed by: Dr. Joaquin Valenzuela M.D. on 02/02 3:04 PM Dictated By: JOAQUIN VALENZUELA MD 6520 Transcribed By: PINEDA on 02/22/19 3010 COPY TO: KIERSTEN DONALD DITCH REPAIRER KNEE LEFT THREE VIEWS [place] [address] Patient Name: DAVID CABRERA MR #: [id number] : 1945 Age/Sex: 72/M Req #: [id number] Adm Physician: Ordered by: JAQUELIN BARRETO DITCH REPAIRER Report #: [id number] Location: ER Room/Bed: Procedure: [id number] DX/KNEE LEFT THREE VIEWS Ex am Date: 09/15/17 Exam Time: 1045 REPORT STATUS : Signed EXAM: KNEE LEFT THREE VIEWS DATE: 09/15/2017 10:27 AM URMILA CATION: Fall/pain COMPARISON: None FINDINGS: Advanced degene rative changes are present, predominantly in the lateral compartment with comp lete joint space loss. Small joint effusion present. No distinct fracture or d islocation identified. IMPRESSION: Advanced degenerative changes as abov e. Signed by: Dr. Les Chacon MD on 09/15/2017 11:13 AM Dictated By : LES CHACON MD 111 3 Transcribed By: PINEDA on 09/15/17 1113 COPY TO: JAQUELIN BARRETO NP
[2020-03-01] MEDS ORDERED: FENTANYL CITRATE/PF 100MCG/2 ML INJ ONE ×2 (13:26→13:40)
[2020-03-01] MEDS ORDERED: MIDAZOLAM HCL 2 MG/2 ML VIAL ONE (13:26)
--- NOTE | 2020-03-01 13:32 | Diagnostic Imaging Report ---
EXAM: KNEE RIGHT 1-2 VIEWS DATE: 03/01/2020 1:10 PM INDICATION: Postop COMPARISON: None FINDINGS: There are postsurgical changes from right knee arthroplasty. Hardware appears intact and in anatomic alignment. There is no evidence for acute fracture or dislocation. No focal lytic or blastic abnormality is identified. There is adjacent subcutaneous emphysema and small joint effusion, likely postoperative. Overlying skin marc noted. IMPRESSION: Expected postsurgical changes from recent right knee arthroplasty. Signed by: Dr. Finesse George MD on 03/01/2020 1:29 PM
--- NOTE | 2020-03-01 14:10 | NUR ---
RECEIVED PATIENT FROM PACU. PATIENT A/O X3, EVEN RESPIRATIONS ON 2LNC. LUNG SOUNDS CLEAR. VSS STABLE. RIGHT KNEE DRESSING C/D/I. FOOT PUMPS BILATERALLY. LEFT WRIST 20 GAUGE IV INTACT/PATENT. ORIENTED PATIENT TO ROOM AND CALL LIGHT. CALL LIGHT IN REACH WILL CONTINUE TO MONITOR.
[2020-03-01 14:35] VITALS: BP 104/74
[2020-03-01 14:38] VITALS: BP 104/74
[2020-03-01 14:43] VITALS: BP 104/74
--- NOTE | 2020-03-01 15:01 | Operative Report ---
DATE OF PROCEDURE: 03/01/2020 SURGEON: Celestine Ventura MD MILITARY POLICE OFFICER: Lawson Andrade, certified PA. 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 PROCEDURE: Revision right total knee arthroplasty. INDICATIONS: The patient is a 74-year-old gentleman, who is status post a right knee replacement at an outside institution some years ago. The knee has gone on to catastrophically failed. The findings and options have been discussed with the patient. He has had a negative inflammatory workup. We plan on a revision total knee replacement. The risks and benefits have been discussed. Particular discussion and attention have been directed towards the fragmentation of his patella. There is no way to reconstruct any type of patellar resurfacing in the future. All of this was explained. He states he understands and wishes to proceed. PROCEDURE IN DETAIL: The patient was brought to the operating room and placed under general anesthetic. He received a regional block, prophylactic antibiotics and tranexamic acid in the holding area. His right lower extremity was prepped and draped in a sterile manner. A preoperative time-out was performed. The extremity was exsanguinated and a proximal tourniquet was inflated to 300 mmHg. The previous incision was utilized. A medial parapatellar arthrotomy was performed. Cultures were taken. Slightly blood-tinged synovial fluid was removed from the joint. A partial synovectomy was performed to better mobilize the soft tissue. A lateral retinacular release was necessary to vaishali the patella. The patella basically fell off what was left of the patellar bone. 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 There was no pertained remaining cement that I could detect. The femur was also grossly loose and fell off without any difficulties. The tibial component was more adherent to the tibial bone. An oscillating saw was used to gently free up the bone cement mantle. A bone tamp was used and this tibial component was easily removed. The entire cement mantle remained on the tibia. This was carefully removed with osteotomes and curettes. The entire cement mantle came with the femoral component. There was an extensive fibrous membrane over the distal femur. Both the distal femur in the proximal tibia were debrided back to more healthy bone. A Rubio and [employer] revision knee system was used. Intramedullary reamers were placed down the tibial canal. A size #16 reamer was necessary for good canal fill for what was going to be necessary for a 160 mm stem. A 1 mm fresh bone cut was made, where it had subsided was more like a 5 mm cut. This was debrided from the soft tissue. Tibial base plates were trialed. A #4 trial provided best tibial coverage. I had to use a [address] the tibia over the majority of the medial tibial plateau. The central fin punch was impacted. Attention was directed towards the distal femur. A 20 mm reamer was necessary to accommodate 160 mm stem. There was severe bone loss. There was nothing to cut. I ended up trialing different femoral component with different wedges to see what works best. Ultimately, I elected to use a size #4 stem with a 15 mm distal lateral femoral wedge with a 5 mm posterior wedge. The medial compartment had a 5 mm wedge. This restore the appropriate joint line. There was no bone to cut for notch cut. With these wedges, the femoral component was actually quite stable. A 9 mm posterior stabilized tibial insert provided appropriate soft tissue balancing in full extension and 90 degrees of flexion. The patella tracking was a mass, it was subluxed laterally. The lateral retinacular release did help significantly. There was fragmentation of the patellar bone. Bony prominences were carefully and gently debrided. There was nothing much to work with on the patella. The trial components were then removed. The knee was thoroughly irrigated with a shower tip pulsatile lavage. A 100 mL premixed pericapsular JERRY injection was placed into the surrounding soft tissue. The knee was further irrigated. The components were assembled on the back table. Press-fit stems were used. A single mix of Biomet high viscosity cement preloaded with antibiotics was used around the components. These were seated and a 9 mm tibial insert was placed. Final reduction was performed. The wound was further irrigated and then the arthrotomy was closed after sprinkling 500 mg of vancomycin powder into the wound. Interrupted #1 Ethibond stitches were used to close the medial arthrotomy. I was able to range the knee from 0 degrees to 90 degrees with fairly motion and good stability. The skin was closed with subcuticular Vicryl and marc. A sterile Aquacel bandage was applied. An Reji wrap was applied. The patient was extubated and transported to the recovery room in stable condition. Blood loss was minimal. All needle and sponge counts were correct. Cultures were taken upon entering the arthrotomy. Celestine Ventura MD DR/RADHA /[id number]
--- NOTE | 2020-03-01 15:03 | NUR ---
DR COLLIER OFFICE PREARRANGED FOLLOWING DISCHARGE PLAN OF:[address] [facility] WITH INTERIM CONFIRMED WITH WILL [phone] DME 3 IN ONE COMMODE,CPM AND ROLLING WALKER WITH WHEELS. PROVIDED BY [employer] [phone] WANDA SIGNED AND ON CHART COPY LEFT WITH PATIENT GAVE CARD FOR QUESTIONS AND OR CONCERNS.
[2020-03-01] MEDS: SODIUM CHLORIDE 0.9% 1000ML 1,000 ML IV SCH ×2 (15:16→21:44)
[2020-03-01] MEDS: CEFAZOLIN SOD 1 GM/NS 50ML 50 ML IV SCH ×2 (15:16→21:40)
[2020-03-01 16:03] VITALS: BP 115/73
[2020-03-01] MEDS: ASPIRIN 325 MG TAB PO SCH (16:59)
[2020-03-01] MEDS ORDERED: CELECOXIB 100 MG CAP PO SCH (17:00)
--- NOTE | 2020-03-01 19:45 | NUR ---
RECEIVED PATIENT FROM [facility] RN, PATIENT A/O X3, EVEN RESPIRATIONS, 2 LITERS NC, LUNG SOUNDS CLEAR., S/P RIGHT KNEE REVISION, RIGHT KNEE DRESSING C/D/I. LEFT WRIST 20 GAUGE IV PATENT FLUSHES WELL, SITE C/D/I. DENIES PAIN OR DISCOMFORT AT THIS TIME CALL LIGHT IN REACH WILL CONTINUE TO MONITOR.
[2020-03-01 20:00] VITALS: BP 106/67
[2020-03-01] MEDS ORDERED: ZOLPIDEM TARTRATE 5 MG TAB PO PRN (21:00)
[2020-03-02] VITALS (7 sets, daily range): BP systolic 97–139; BP diastolic 67–83
--- NOTE | 2020-03-02 03:00 | NUR ---
CALL LIGHT ANSWERED PATIENT REQUESTING BEDPAN, PLACED ON BEDPAN, CALL LIGHT WITHIN REACH
[2020-03-02] MEDS: CEFAZOLIN SOD 1 GM/NS 50ML 50 ML IV SCH (05:46)
[2020-03-02 05:58] LABS: HEMATOCRIT 35.6 % (38.2-49.6); HEMOGLOBIN 11.7 g/dL (14.0-18.0)
--- NOTE | 2020-03-02 07:00 | NUR ---
RECEIVED PATIENT RESTING IN BED NO S/S OF DISTRESS. BED LOW, WHEELS LOCKED, SIDE RAILS X2. CALL LIGHT IN REACH WILL CONTINUE TO MONITOR.
[2020-03-02] MEDS ORDERED: KETOROLAC TROMETHAMINE 30 MG/ML VIAL IV PRN (08:15)
[2020-03-02] MEDS: ASPIRIN 325 MG TAB PO SCH ×2 (08:24→16:38)
--- NOTE | 2020-03-02 08:45 | Consultation ---
DATE OF CONSULTATION: 03/01/2020 CHIEF COMPLAINT: Status post right total knee arthroplasty revision. HISTORY: The patient is a 74-year-old male with right knee osteoarthritis and failed knee replacement previously. The patient is otherwise stable. The patient is status post revision of the right total knee arthroplasty. The patient is otherwise stable. No chest pain. No shortness of breath. No abdominal pain. The patient has mechanical complication of the right total knee prosthesis previously. The patient is stable now. He does have hypertension and hypothyroidism at baseline, which is stable. PAST MEDICAL HISTORY: Hypertension, hypothyroidism, and osteoarthritis. PAST SURGICAL HISTORY: Right knee replacement now status post right knee replacement revision. Hiatal hernia repair, appendectomy, and prostatectomy. SOCIAL HISTORY: The patient does not smoke or use alcohol. No regular drug. ALLERGIES: MORPHINE AND CELEBREX. HOME MEDICATIONS: List is reviewed. REVIEW OF SYSTEMS: As above. PHYSICAL EXAMINATION: VITAL SIGNS: Temperature is 98, blood pressure 127/62, pulse rate 80, respirations 18. GENERAL: The patient is not in acute distress. HEENT: Normocephalic and atraumatic. Pupils reactive and anicteric. NECK: Supple grossly. PULMONARY: Clear. CARDIOVASCULAR: Regular rate and rhythm. ABDOMEN: Soft and unremarkable. EXTREMITIES: No cyanosis or edema status post right knee with revision and replacement. EXTREMITIES: No cyanosis or edema. NEUROLOGIC: No focal deficit. LABORATORY: Hemoglobin and hematocrit 11.7 and 37.6. ASSESSMENT AND PLAN: 1. The patient is status post revision of right total knee arthroplasty. 2. Hypertension. 3. Hypothyroidism. 4. Osteoarthritis. PLAN: Continue with home medication today. Discontinue IV fluids. PT/OT. The patient is stable. Medically, the patient is stable postoperatively. Thank you, Dr. Ventura for this consultation. We will follow up with you and will adjust the patient's medication as needed. Once upon discharge, the patient will resume his home medication. MD CHARLY Hennessy/RADHA /[id number]
[2020-03-02] MEDS: LEVOTHYROXINE SODIUM 25 MCG TABLET PO SCH ×2 (09:00→09:07)
[2020-03-02] MEDS ORDERED: MULTIVITAMINS/MINERALS TAB PO SCH (09:00)
[2020-03-02] MEDS ORDERED: LISINOPRIL 10 MG TAB PO SCH (09:00)
[2020-03-02] MEDS ORDERED: ACETAMINOPHEN 1000 MG/100 ML IV PRN (13:00)
--- NOTE | 2020-03-02 17:05 | NUR ---
REMOVED PATIENTS IV. CATHETER TIP INTACT AND PRESSURE DRESSING APPLIED.
--- NOTE | 2020-03-02 17:18 | NUR ---
PATIENT DISCHARGED FROM FACILITY. PATIENT GATHERED ALL PERSONAL BELONGINGS, DISCHARGE INFORMATION AND FOLLOW UP INFORMATION. NO S/S OF DISTRESS LEAVING FACILITY.
== END 2020-03-02 17:18 | disposition home or self-care (01) | DRG 468 ==
LOC: OR 08:56 → PACU V 12:52 → MED/SURG 14:13
PROVIDERS: ADMIT Specialist; ATTEND Specialist
PROC: 0SPC0JZ Removal of Synthetic Substitute from Right Knee Joint, Open Approach (ICD-10-PCS; 2020-03-01)
PROC: 0SRC0J9 Replacement of Right Knee Joint with Synthetic Substitute, Cemented, Open Approach (ICD-10-PCS; principal; 2020-03-01 11:30)
DX: T84.092A Other mechanical complication of internal right knee prosthesis, initial encounter (principal); I10 Essential (primary) hypertension; Z96.653 Presence of artificial knee joint, bilateral; Z98.890 Other specified postprocedural states; Z88.5 Allergy status to narcotic agent; Z88.8 Allergy status to other drugs, medicaments and biological substances; Z11.59 Encounter for screening for other viral diseases
CPT/HCPCS: 36415; 71046; 85014; 85018; 85025; 86850; 86900; 86920; 87071; 87075; 87205; C1713; C1776; J0171; J0690; J1100; J1885; J2001; J2250; J2405; J2795; J3010; J3370; J7030; J7040

== ENCOUNTER → 2022-07-31 | Outpatient (CLI) | payer MEDICARE ==
[~2022-07-31] MED LIST changes: -ROPIVACAINE 246.25 MG, EPINEPHRINE HCL 1:1000 1ML 0.5 MG, CLONIDINE HCL 0.08 MG, KETORO... INJ ONE
== END ==
LOC: DX 09:33
PROVIDERS: ATTEND Internal Medicine
DX: Z00.00 Encounter for general adult medical examination without abnormal findings (principal); M85.88 Other specified disorders of bone density and structure, other site
CPT/HCPCS: 71046; 77080

== ENCOUNTER → 2024-01-29 | Outpatient (REF) | payer MEDICARE ==
[~2024-01-29] MED LIST changes: +FENTANYL CITRATE/PF 100MCG/2 ML INJ ONE; +LIDOCAINE HCL 1% LOCAL INJ 20 ML VIAL ONE; +MIDAZOLAM HCL 2 MG/2 ML VIAL ONE
[2024-01-29 08:53] LABS: BASOPHILS % 0.4 % (0.0-1.0); EOSINOPHILS # (AUTO) 0.3 (0.0-0.4); EOSINOPHILS % 3.4 % (0.0-6.0); HEMATOCRIT 45.1 % (38.2-49.6); HEMOGLOBIN 14.5 g/dL (14.0-18.0); LYMPHOCYTES # (AUTO) 1.7 (1.0-3.2); LYMPHOCYTES % 21.1 % (18.0-39.1); MEAN CORPUSCULAR HEMOGLOBIN 30.9 pg (28-32); MEAN CORPUSCULAR HGB CONC 32.2 g/dL (31-35); MONOCYTES # (AUTO) 0.5 (0.2-0.8); MONOCYTES % 6.2 % (4.4-11.3); NEUTROPHILS # (AUTO) 5.5 (2.1-6.9); NEUTROPHILS % 68.5 % (38.7-80.0); PLATELET COUNT 286 x10e3/uL (140-360); RED CELL DISTRIBUTION WIDTH 13.3 % (11.7-14.4); WHITE BLOOD COUNT 8.05 x10e3/uL (4.8-10.8)
[2024-01-29 09:08] LABS: ANION GAP 13.8 mmol/L (8-16); CREATININE, SERUM 1.26 mg/dL (0.72-1.25); INR 0.95; POTASSIUM 3.8 mmol/L (3.5-5.1); PROTHROMBIN TIME 13.2 seconds (11.9-14.5)
[2024-01-29 09:09] LABS: PARTIAL THROMBOPLASTIN TIME 39.4 seconds (23.8-35.5)
== END ==
LOC: US 08:14
PROVIDERS: ATTEND Urology
DX: N28.9 Disorder of kidney and ureter, unspecified (principal)
CPT/HCPCS: 36415; 50200; 76942; 80048; 85025; 85610; 85730; 88307; 88342; J2001; J2250; J3010; 88305; 99152; 99153